=== PATIENT | male | born 1950 | race Caucasian/White ===

== ENCOUNTER → 2016-07-03 | Outpatient (CLI) | payer OTHER ==
[~2016-07-03] VITALS: Ht 175.3 cm; Wt 95.3 kg
[~2016-07-03] MED LIST: ALDACTONE50 MG PO; ASPIR 8181 MG PO; BACTRIM DS TAB1 EACH PO; DOXYCYCLINE 10100 MG PO; GABAPENTIN 100100 MG PO; HYDROCHLOROTHIA25 M2 PO; IMURAN 50MG TAB50 M1 PO; INVANZ 1GM/NS 101 GM IV; LEVAQUIN 750 M750 MG PO; LOSARTAN PO; MS CONTIN15 MG PO; NEURONTIN 300300 M1 PO; NEURONTIN 400400 M1 PO; NORCO 10-325 T1 EACH PO; NORVASC2.5 MG PO; OXYCODONE HCL5 M1 PO; PERCOCET 10-321 EACH PO; PERCOCET PO; PREDNISONE 20 M20 MG PO; PREDNISONE 5 MG5 M1 PO; PROBIOTIC1 EAC1 PO; SYMBICORT160 MCG/4. INH; VANCO 1 GR1 GM/250 M IVPB; XANAX 0.5 MG0.5 MG PO
--- NOTE | ~2016-07-03 | HPC ---
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 Because of this, he is on multiple disease modifying agents including prednisone 20 mg a day and Imuran. Unfortunately, these have significantly impacted his immune function and now he has this fairly significant infection in his left foot. He is on multiple antibiotics for this and is following with Dr. Sanchez at . He has been on chronic opiate analgesics for his chronic Charcot left foot, had been taking hydrocodone approximately 60 mg a day for a great deal of time with dwindling efficacy last visit, we rotated MS Contin 15 mg q. 8 hours with oxycodone 5 mg three times for breakthrough pain. He returns to pain clinic today noting while on medication it was somewhat helpful. He feels that the MS Contin is promoting some lethargy and his pain control is still problematic, still rating pain as 6 on a 0-10 visual analog scale with medication. Describes constant, burning, shooting sensation, low back, right leg and left foot. ASSESSMENT: Chronic pain syndrome requiring complex medication management, neuropathic pain component with history Charcot left foot. RECOMMENDATIONS: I had a long discussion about this today about therapeutic option. We have elected to rotate to Percocet , limit 4 day. We talked about risks of opiate habituation tolerance, mental acuity changes, constipation. I have taken the liberty of writing for 2 months current medications. Follow up in 1 month if medication is not efficacious. Follow up in 2 months if doing well. We had reviewed the opiate consent to treat contract with the patient at last visit. The patient was discharged in good and stable condition after prolonged visit, [facility] [address] [place] [address] PAIN MANAGEMENT CONSULTATION Name: LEÓN GONZALEZ Rach Room #: REG [facility]#: [id number] Admission: 07/03/16 Attend Phys: Amado Perez DO Discharge: Date of : 50 Report #: [id number] greater than 25 minutes was spent reviewing the patient's significant comorbidities and complicated medication management. <ELECTRONICALLY SIGNED> By: Amado Perez DO 07/08/16 1607 [id number] Amado Perez DO /nt
[2016-07-03 13:15] VITALS: BP 127/89
== END | disposition home or self-care (01) ==
LOC: PAIN 07:18
DX: G89.4 Chronic pain syndrome (principal); M79.2 Neuralgia and neuritis, unspecified; M33.91 Dermatopolymyositis, unspecified with respiratory involvement; Z87.891 Personal history of nicotine dependence

== ENCOUNTER → 2016-11-20 | Outpatient (CLI) | payer OTHER ==
[~2016-11-20] VITALS: Ht 175.3 cm; Wt 104.3 kg
[~2016-11-20] MED LIST changes: +ALDACTONE25 MG PO; +BENICAR20 MG PO; +CARVEDILOL3.125 MG PO
--- NOTE | ~2016-11-20 | HPC ---
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 Last visit 08/28/2016, we continue the patient on Percocet 10/325 four a day. He returns to pain clinic today noting that medications continue to provide sufficient analgesia to participate in activities of daily living, rates the pain at 4/10, no problems constipation. Primary pain is low back and right leg. Unfortunately, in the interval since we last saw him, he had E. coli sepsis, was at [facility] in the ICU with pneumonia. This has resolved. He is looking little bit better presently. Currently on a steroid wean with current prednisone dose down to 5 mg. PHYSICAL EXAMINATION: Otherwise, the patient is doing as well as can be expected. BMI is 33.9 kilograms per meter squared. Subjective pain score is 4/10. Alert and oriented to person, place and time, judged to be a reasonable historian. Vital signs are generally stable. Blood pressure 103/66, pulse 79, respirations 14. Room air oxygen saturation is always diminished, he is down to 89%. He uses supplemental oxygen at night. Ongoing pain. He is in a wheelchair presently. He states with a walker he can transition himself throughout the house, get on to the toilet and in and out of bed and do some household functions. We reviewed the fact that opiate medications are being used to provide analgesia adequate to support activities of daily living, not attempting to achieve a specific pain score on the 0-10 Visual Analog Scale. The current opiate medications are providing sufficient analgesia to allow the patient to participate in activities of daily living. The patient is not exhibiting any aberrant behavior suggestive of drug diversion. The patient is not having any adverse reactions to medications. The patient is not suffering from daytime somnolence or mental acuity changes. The patient is managing opiate-induced constipation with appropriate nxhq-kmt-zbbzgag agents and dietary considerations. The patient was counseled on concern for caution with operating a motor vehicle while using opiate medications. A physical exam was performed and the patient's functional status was evaluated. All patients with back pain were advised against the bed rest greater than 4 days and were advised to return to normal activities. [place] [address] PAIN MANAGEMENT CONSULTATION Name: LEÓN GONZALEZ Rach Room #: REG [facility] Edward#: [id number] Admission: 11/20/16 Attend Phys: Amado Perez DO Discharge: Date of : 50 Report #: [id number] noted and the treatment plan was reviewed with the patient. All current medications, both prescribed and OTC were reviewed and reconciled on the electronic medical record. Tobacco screening was accomplished and smoking cessation was advised when indicated. BMI was noted and diet/exercise modification was recommended for all patients following outside normal parameters. I reviewed with the patient today their responsibilities to safeguard prescription medications, reviewed their responsibility to utilize medications only as prescribed by the physician. They are to seek and receive pain medications only from 1 physician group ( [facility]). They are to use 1 pharmacy and keep the clinic informed if they change pharmacies. Their responsibilities include making followup visits in a timely fashion and to avoid abrupt discontinuation of medication usage. Their responsibilities further include bringing their medications (bottles from the pharmacy with residual pills) to the visit for possible confirmation of pill counts and the patient understands it is their responsibility to submit to random drug screens to ensure both that the medications prescribed are present, and that no other controlled substances are present. All prescriptions provided today were generated electronically. ASSESSMENT: 1. Charcot right foot. 2. Chronic pain syndrome, 3. Amyotrophic dermatomyositis affecting pulmonary function. 4. Requiring complex medication management, stable on baseline medications. RECOMMENDATIONS: After discussion with the patient, we would like to continue baseline narcotic unchanged, Percocet 10/325 up to 4 a day, I have taken the liberty of writing for 3 months of current medication. Follow up at that time, earlier if needed. By: 1236 Amado Perez, /nt
[2016-11-20 11:03] VITALS: BP 103/66
== END | disposition home or self-care (01) ==
LOC: PAIN 05:59
DX: G89.4 Chronic pain syndrome (principal); M14.671 Charcot's joint, right ankle and foot; M33.11 Other dermatomyositis with respiratory involvement; F11.20 Opioid dependence, uncomplicated; Z87.891 Personal history of nicotine dependence

== ENCOUNTER → 2017-02-22 | Outpatient (CLI) | payer OTHER | LOC: PAIN 07:05 | DX: M79.2 Neuralgia and neuritis, unspecified (principal) ==

== ENCOUNTER → 2017-05-24 | Outpatient (CLI) | payer OTHER ==
[~2017-05-24] VITALS: Ht 175.3 cm; Wt 108.8 kg
[~2017-05-24] MED LIST changes: +AMPHETAMINE SAL10 MG PO; +BUMETANIDE2 M1 PO; +KLOR-CON 1010 MEQ PO; +MINOCIN100 MG PO; +XARELTO20 MG PO
--- NOTE | ~2017-05-24 | HPC ---
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 Long history of a Charcot foot with chronic debility and pain. He has been diagnosed with amyotrophic dermatomyositis affecting pulmonary function. He has been stable on Percocet 10/325 averaging about 4 a day. He returns to the pain clinic today. Since last visit on 02/22/2017, he has been fairly confined to a motorized chair due to pulmonary function. States his pain averages anywhere from a 4 to 5 on a normal day up to 6 to 7 on a visual analog scale exacerbated with standing and walking. Again significant pulmonary rate limiting factors. Pain is primarily low back, right ankle and leg and similar on the left as well. The pain is burning and sharp. We reviewed the fact that opiate medications are being used to provide analgesia adequate to support activities of daily living, not attempting to achieve a specific pain score on the 0-10 Visual Analog Scale. The current opiate medications are providing sufficient analgesia to allow the patient to participate in activities of daily living. The patient is not exhibiting any aberrant behavior suggestive of drug diversion. The patient is not having any adverse reactions to medications. The patient is not suffering from daytime somnolence or mental acuity changes. The patient is managing opiate-induced constipation with appropriate ttdz-xke-topnnmz agents and dietary considerations. The patient was counseled on concern for caution with operating a motor vehicle while using opiate medications. A physical exam was performed and the patient's functional status was evaluated. All patients with back pain were advised against the bed rest greater than 4 days and were advised to return to normal activities. Pain score assessment was noted and the treatment plan was reviewed with the patient. All current medications, both prescribed and OTC were reviewed and reconciled on the electronic medical record. Tobacco screening was accomplished and smoking cessation was advised when indicated. BMI was noted and diet/exercise modification was recommended for all patients following outside normal parameters. I reviewed with the patient today their responsibilities to safeguard prescription medications, reviewed their responsibility to utilize medications only as prescribed by the physician. They are to seek and receive pain medications only from 1 physician group ( [facility]). They are to use 1 pharmacy and keep the clinic informed if they change pharmacies. Their responsibilities include making followup visits in a timely fashion and to avoid abrupt discontinuation of medication usage. Their responsibilities further include bringing their medications (bottles from the pharmacy with residual [facility] [address] [place] [address] PAIN MANAGEMENT CONSULTATION Name: LEÓN GONZALEZ Rach Room #: REG [facility] Edward#: [id number] Admission: 05/24/17 Attend Phys: Amado Perez DO Discharge: Date of : 50 Report #: [id number] pills) to the visit for possible confirmation of pill counts and the patient understands it is their responsibility to submit to random drug screens to ensure both that the medications prescribed are present, and that no other controlled substances are present. All prescriptions provided today were generated electronically. PHYSICAL EXAMINATION: Shows a 66-year-old gentleman, BMI 35.4 kilograms per meter squared. Vital signs stable as noted in the EMR with the exception of oxygen saturation, which is 91%. He uses supplemental oxygen p.r.n. Again, he is alert and oriented to person, place and time, judged to be a reasonable historian. Upper extremity strength is generally symmetric. He is quite short of breath. Respiratory rate is about 20. He does have a progressive debility. Right ankle is continuing to be somewhat deformed with a lateral deviation. Left ankle actually has a little bit of pronation defect. ASSESSMENT: Neuropathic pain, bilateral feet, status post Charcot foot with chronic pain syndrome requiring high risk complex medication management. Comorbidity includes amyotrophic dermatomyositis affecting primarily pulmonary function. RECOMMENDATION: Continue Percocet 10/325 up to 4 a day, taken the liberty of writing for 3 months of current medication. Follow up at that time earlier if needed. By: 1516 [id number] Amado Perez DO /nt
[2017-05-24 11:19] VITALS: BP 122/82
== END ==
LOC: PAIN 06:55
DX: G89.4 Chronic pain syndrome (principal); M79.2 Neuralgia and neuritis, unspecified; M33.99 Dermatopolymyositis, unspecified with other organ involvement; Z79.899 Other long term (current) drug therapy

== ENCOUNTER → 2017-09-16 | Outpatient (CLI) | payer OTHER ==
[~2017-09-16] VITALS: Ht 175.3 cm; Wt 104.6 kg
[~2017-09-16] MED LIST changes: +METOPROLOL TART25 MG PO
--- NOTE | ~2017-09-16 | HPC ---
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 He had developed amyotrophic dermatomyositis with a primary pulmonary compromise. He has been dramatically disabled secondary to same. He also has some cardiac impact with history of congestive failure. Since he was last seen in the pain clinic 05/24/2017, he has been in the hospital twice for significant congestive failure. Returns to pain clinic today. Pain remains about 6 on VAS. Has chronic right sciatic pain, chronic bilateral foot pain, has developed foot drop on the left side. He uses a rollator to get around his home. He is able to transition on his own. He is limited by pulmonary function primarily, uses supplemental oxygen at 2 liters per minute. Saturation is 94%. Rates his pain a 6 on VAS. PHYSICAL EXAMINATION: Shows pleasant 5-foot 9-inch, 230-pound gentleman, BMI is 34 kilograms per meter squared. Blood pressure 109/69, pulse 73, respirations 14. Alert and oriented to person, place and time, judged to be a reasonable historian. He is on Xarelto. Has not fallen since we saw him last. Medication list was reconciled. Functional assessment tool score is quite high (noted on EMR) . Low opiate risk assessment. Had smoked cigars in the past, does not use any tobacco products presently. Alert, oriented to person, place and time, judged to be a reasonable historian. Again, in a wheelchair with supplemental oxygen. Has a fused right ankle AFO left foot, peripheral hyperpathia and allodynia. We reviewed the fact that opiate medications are being used to provide analgesia adequate to support activities of daily living, not attempting to achieve a specific pain score on the 0-10 Visual Analog Scale. The current opiate medications are providing sufficient analgesia to allow the patient to participate in activities of daily living. The patient is not exhibiting any aberrant behavior suggestive of drug diversion. The patient is not having any adverse reactions to medications. The patient is not suffering from daytime somnolence or mental acuity changes. The patient is managing opiate-induced constipation with appropriate gwxm-iec-afmdeqw agents and dietary considerations. The patient was counseled on concern for caution with operating [address] [address] PAIN MANAGEMENT CONSULTATION Name: LEÓN GONZALEZ Rach Room #: REG [facility] Edward#: [id number] Admission: 09/16/17 Attend Phys: Amado Perez DO Discharge: Date of : 50 Report #: [id number] a motor vehicle while using opiate medications. A physical exam was performed and the patient's functional status was evaluated. All patients with back pain were advised against the bed rest greater than 4 days and were advised to return to normal activities. Pain score assessment was noted and the treatment plan was reviewed with the patient. All current medications, both prescribed and OTC were reviewed and reconciled on the electronic medical record. Tobacco screening was accomplished and smoking cessation was advised when indicated. BMI was noted and diet/exercise modification was recommended for all patients following outside normal parameters. I reviewed with the patient today their responsibilities to safeguard prescription medications, reviewed their responsibility to utilize medications only as prescribed by the physician. They are to seek and receive pain medications only from 1 physician group ( [facility]). They are to use 1 pharmacy and keep the clinic informed if they change pharmacies. Their responsibilities include making followup visits in a timely fashion and to avoid abrupt discontinuation of medication usage. Their responsibilities further include bringing their medications (bottles from the pharmacy with residual pills) to the visit for possible confirmation of pill counts and the patient understands it is their responsibility to submit to random drug screens to ensure both that the medications prescribed are present, and that no other controlled substances are present. All prescriptions provided today were generated electronically. The patient has been stable on chronic opiate analgesics, Percocet 10/325 four a day for some time. This equates to 60 mEq of morphine. He has done well with his current medication. He rports no problems with daytime somnolence, mental acuity changes or constipation. Today, we did elect to get a buccal drug screen, again no aberrant behavior suggestive for drug diversion, simply complying with our opiate consent to treat contract. I did renew his prescriptions for another 3 months. Follow up at that time, earlier if needed. The patient was seen for prolonged visit today, approximately 30 minutes were spent counseling the patient, reviewing significant interval health history issues. ASSESSMENT: 1. Charoct ankle(s) 2. Chronic pain syndrome 3. Neuropathic pain 4. Complex medication managment [facility] [address] [place] [address] PAIN MANAGEMENT CONSULTATION Name: LEÓN GONZALEZ Room #: REG [facility] Cheyanne#: [id number] Admission: 09/16/17 Attend Phys: Amado Perez DO Discharge: Date of : 50 Report #: [id number] 5. Co-morbidities of significant pulmonary dysfunction (rate limiting factor) supplemenmtal oxygen dependant and general deconditioning. <ELECTRONICALLY SIGNED> By: Amado Perez DO 09/20/17 0714 [id number] [id number] Amado Perez DO /nt
[2017-09-16 10:39] VITALS: BP 119/69
== END ==
LOC: PAIN 07:00
DX: G89.4 Chronic pain syndrome (principal); M79.2 Neuralgia and neuritis, unspecified; Z79.899 Other long term (current) drug therapy